=== PATIENT | female | born 1935 | race Caucasian/White ===

== ENCOUNTER 2018-07-12 10:24 | Emergency (ER) | payer MEDICARE, BC, OTHER ==
[2018-07-12] MEDS ORDERED: Ondansetron PF 4 MG/2 ML Vial ONE (10:48)
[2018-07-12 10:56] LABS: #Basophils 0.1 thou/uL (0.0-0.2); #Eosinphils 0.1 thou/uL (0.0-0.7); #Monocytes 0.6 thou/uL (0.11-0.59); #Neutrophils 10.3 thou/uL (1.40-6.50); %Basophils 0.4 % (0.0-1.0); %Eosinophils 0.9 % (0.0-10.0); %Lymphocytes 15.4 % (21.0-51.0); %Monocytes 4.6 % (0.0-10.0); %Neutrophils 78.7 % (42.0-75.0); Hemoglobin 13.4 g/dL (12.0-16.0); Mean Corpuscular HGB CONC 32.8 g/dL (32.0-36.0); Mean Corpuscular Hemoglobin 28.3 pg (27.0-31.0); Mean Corpuscular Volume 86.4 fL (78.0-98.0); Mean Platelet Volume 8.2 fL (7.4-10.4); Platelet Count 166 thou/uL (130-400); Red Blood Cell (RBC) Count 4.71 mill/uL (4.20-5.40); White Blood Cell (WBC) Count 13.1 thou/uL (4.8-10.8)
--- NOTE | 2018-07-12 11:02 | CT ---
CT BRAIN: Date: 07/12/18 PROVIDED CLINICAL HISTORY: Recent fall, vomiting. FINDINGS: Comparison made with study dated 06/07/12. The ventricular system is mildly prominent on the basis of central atrophy. There is no evidence for intracranial hemorrhage or mass effect. Mild chronic microvascular ischemic changes are seen involvin g the cerebral white matter. The extracranial soft tissues and osseous structures demonstrate an unre markable CT appearance. IMPRESSION: No evidence for intracranial hemorrhage or mass effect. POS: [facility]
[2018-07-12 11:10] LABS: Bilirubin Negative (Negative); Blood, Urine Small (Negative); Clarity TURBID (Clear); Glucose, Urine (Dipstick) Negative (Negative); Leukocyte Moderate (Negative); Nitrite Positive (Negative); Protein, Urine (Dipstick) 100 mg/dL (Neg-Trace); Specific Gravity, Urine 1.025 (1.002-1.036); pH, Urine 6.5 (5.0-9.0)
[2018-07-12 11:16] LABS: Bacteria/HPF 4+ HPF (None Seen); Pathc Cast-AUWi Flag 2.24 (0-2.49)
[2018-07-12 11:17] LABS: Yeast-AUWi Flag 51.5 (0-25.0)
[2018-07-12] MEDS ORDERED: ISOVUE-370 76%-LOCM 1 ML ONE (11:24)
[2018-07-12 11:26] LABS: Hyaline Casts/LPF NONE SEEN LPF (0-3 Hyaline); Yeast-All Forms None Seen HPF (None Seen)
[2018-07-12 11:35] LABS: ALT (SGPT) 13 U/L (8-55); AST (SGOT) 17 U/L (5-34); Albumin 4.1 g/dL (3.4-4.8); Alkaline Phosphatase 95 U/L (40-150); Anion Gap 16 mmol/L (10-20); BUN (Urea Nitrogen) 14 mg/dL (9.8-20.1); Bilirubin, Total 0.6 mg/dL (0.2-1.2); Calc. Creatinine Clearance 0 mL/min (70-130); Calcium 9.3 mg/dL (7.8-10.44); Carbon Dioxide 25 mmol/L (23-31); Chloride 106 mmol/L (98-107); Estimated GFR-MDRD 76; Globulin 3.1 g/dL (2.4-3.5); Glucose 130 mg/dL (83-110); Lipase 29 U/L (8-78); Potassium 3.5 mmol/L (3.5-5.1); Protein, Total 7.2 g/dL (6.0-8.3); Sodium 143 mmol/L (136-145)
--- NOTE | 2018-07-12 11:53 | CT ---
CT ABDOMEN WITH CONTRAST CT PELVIS WITH CONTRAST: DATE: 07/12/18 HISTORY: 82-year-old female with diffuse abdominal pain and nausea with vomiting. COMPARISON: 08/04/13. TECHNIQUE: IV injection of iodinated contrast media: 100 mL [id number]. Oral contrast media: Not administered. FINDINGS: There is a small sliding hiatal hernia. Again noted are the bilateral adrenal nodules, unchanged. The abdominal aorta, kidneys, pancreas, liver, and spleen demonstrate no gross abnormality. No perichole cystic fluid. Lung bases are grossly clear. No pneumoperitoneum or ascites. Unilateral left breast pr osthesis. No retroperitoneal lymphadenopathy or hematoma. Normal urinary bladder. Distention of the r ectum by a moderately large volume of stool. Absent uterus. Sigmoid colonic diverticula without diver ticulitis. No small bowel dilation. Normal appendix. IMPRESSION: 1. No acute findings. 2. Status post hysterectomy. 3. Bilateral adrenal adenomas. 4. Small sliding hiatal hernia. JNR POS: [facility]
[2018-07-12] MEDS ORDERED: cefTRIAXone\\ROCEPHIN 1 GM VIAL ONE (11:56)
== END 2018-07-12 14:37 | disposition home or self-care (01) ==
LOC: ERS 10:24
DX: N39.0 Urinary tract infection, site not specified (principal); R11.2 Nausea with vomiting, unspecified; I10 Essential (primary) hypertension; E78.5 Hyperlipidemia, unspecified; M19.90 Unspecified osteoarthritis, unspecified site; Z79.899 Other long term (current) drug therapy
CPT/HCPCS: 51701; 70450; 74177; 80053; 81003; 81015; 83605; 83690; 84484; 85025; 87077; 87086; 87186; 87804; 93005; 96361; 96365; 96375; A4353; J0696; J2405

== ENCOUNTER 2021-02-08 08:47 | Inpatient (IN) | payer MEDICARE, BC, MEDICAID ==
[2021-02-08] MEDS ORDERED: Diltiazem 125 MG/25 ML ONE (09:31)
[2021-02-08 10:49] LABS: Bacteria/HPF 4+ HPF (None Seen); Bilirubin Negative (Negative); Blood, Urine Trace (Negative); Clarity Turbid (Clear); Glucose, Urine (Dipstick) Normal (Negative); Ketone, Urine 10 mg/dL (Negative); Leukocyte 500 Leu/uL (Negative); Nitrite 1+ (Negative); Protein, Urine (Dipstick) 50 mg/dL (Neg-Trace); Specific Gravity, Urine 1.023 (1.002-1.036); Squamous Epithelial 0-3 HPF (0-3); Urobilinogen Normal mg/dL (Less than 2); WBC/HPF Greater than 50 HPF (0-3); pH, Urine 5.5 (5.0-9.0)
[2021-02-08] MEDS ORDERED: cefTRIAXone\\ROCEPHIN 1 GM VIAL ONE (11:02)
[2021-02-08] MEDS ORDERED: Diltiazem 125 MG in Sodium Chloride 0.9% 100 ML IVPB SCH ×4 (11:45→21:00)
[2021-02-08 12:19] LABS: Anion Gap 14 mmol/L (10-20); BUN (Urea Nitrogen) 18 mg/dL (9.8-20.1); Calc. Creatinine Clearance 0 mL/min (70-130); Calcium 9.5 mg/dL (7.8-10.44); Carbon Dioxide 24 mmol/L (23-31); Chloride 109 mmol/L (98-107); Glucose 105 mg/dL (83-110); Magnesium 1.9 mg/dL (1.6-2.6); Phosphorus 3.4 mg/dL (2.3-4.7); Potassium 3.7 mmol/L (3.5-5.1); Sodium 143 mmol/L (136-145)
[2021-02-08 12:48] LABS: #Basophils 0.1 thou/uL (0.0-0.2); #Eosinphils 0.1 thou/uL (0.0-0.7); #Lymphocytes 2.7 thou/uL (1.20-3.40); #Monocytes 0.7 thou/uL (0.11-0.59); %Basophils 0.5 % (0.0-1.0); %Eosinophils 1.3 % (0.0-10.0); %Lymphocytes 25.9 % (21.0-51.0); %Monocytes 6.3 % (0.0-10.0); Hemoglobin 13.9 g/dL (12.0-16.0); Mean Corpuscular HGB CONC 33.1 g/dL (32.0-36.0); Mean Corpuscular Hemoglobin 28.6 pg (27.0-31.0); Mean Corpuscular Volume 86.4 fL (78.0-98.0); Mean Platelet Volume 8.2 fL (7.4-10.4); Platelet Count 218 thou/uL (130-400); RBC Distribution Width 13.8 % (11.5-14.5); Red Blood Cell (RBC) Count 4.87 mill/uL (4.20-5.40); White Blood Cell (WBC) Count 10.6 thou/uL (4.8-10.8)
[2021-02-08] MEDS ORDERED: Magnesium Sulfate 2 GM in Sodium Chloride 0.9% 100 ML IVPB SCH (13:15)
[2021-02-08] MEDS ORDERED: Magnesium 2 GM/50 ML 2 GM in Premix Bag 1 BAG IVPB SCH (13:15)
[2021-02-08 13:42] LABS: SARS-CoV-2 NAA Rapid Test Not Detected (NotDetected)
[2021-02-08] MEDS ORDERED: Aspirin Chewable 81 MG TAB ONE (13:50)
[2021-02-08] MEDS ORDERED: Magnesium 2 GM/50 ML BAG (IN WATER) ONE (14:13)
[2021-02-08] MEDS ORDERED: Calcium Carbonate 500 MG ChewTAB PO PRN (14:22)
[2021-02-08] MEDS ORDERED: Acetaminophen 325 MG TAB PO PRN (14:22)
[2021-02-08] MEDS ORDERED: Senokot S 8.6-50 MG TAB PO PRN (14:22)
[2021-02-08] MEDS ORDERED: Enoxaparin Sodium 80 MG/0.8 ML SYRINGE ONE (14:51)
[2021-02-08 15:11] LABS: Troponin I 0.021 ng/mL (< 0.028)
[2021-02-08 18:37] VITALS: BMI 23.6
[2021-02-08] MEDS ORDERED: Electrolyte Replacement Protocol 1 EACH FS SCH (20:45)
[2021-02-08] MEDS ORDERED: Electrolyte Replacement Protocol FS PRN (21:00)
[2021-02-08] MEDS: Metoprolol Tartrate 25 MG TAB PO SCH (21:26)
[2021-02-08] MEDS: Polyethylene Glycol 3350 17 GM Packet PO SCH (21:26)
[2021-02-08] MEDS: Senokot S 8.6-50 MG TAB PO SCH (21:26)
[2021-02-08] MEDS: Melatonin 3 MG TAB PO SCH (21:26)
[2021-02-08] MEDS: Donepezil HCl 5 MG TAB PO SCH (21:26)
[2021-02-08] MEDS: Rosuvastatin 5 MG TAB PO SCH (21:26)
[2021-02-09 04:37] LABS: #Eosinphils 0.3 thou/uL (0.0-0.7); #Lymphocytes 2.9 thou/uL (1.20-3.40); #Monocytes 0.8 thou/uL (0.11-0.59); #Neutrophils 5.7 thou/uL (1.40-6.50); %Basophils 0.4 % (0.0-1.0); %Lymphocytes 30.1 % (21.0-51.0); %Monocytes 7.9 % (0.0-10.0); %Neutrophils 58.7 % (42.0-75.0); Hemoglobin 12.6 g/dL (12.0-16.0); Mean Corpuscular HGB CONC 33.6 g/dL (32.0-36.0); Mean Corpuscular Hemoglobin 28.9 pg (27.0-31.0); Mean Platelet Volume 8.8 fL (7.4-10.4); Platelet Count 227 thou/uL (130-400); RBC Distribution Width 13.8 % (11.5-14.5); Red Blood Cell (RBC) Count 4.36 mill/uL (4.20-5.40); White Blood Cell (WBC) Count 9.7 thou/uL (4.8-10.8)
[2021-02-09 05:03] LABS: Phosphorus 4.3 mg/dL (2.3-4.7)
[2021-02-09 05:08] LABS: ALT (SGPT) 12 U/L (8-55); AST (SGOT) 15 U/L (5-34); Albumin 3.4 g/dL (3.4-4.8); Alkaline Phosphatase 94 U/L (40-110); Anion Gap 11 mmol/L (10-20); BUN (Urea Nitrogen) 24 mg/dL (9.8-20.1); Bilirubin, Total 0.4 mg/dL (0.2-1.2); Calc. Creatinine Clearance 38 mL/min (70-130); Calcium 9.2 mg/dL (7.8-10.44); Carbon Dioxide 27 mmol/L (23-31); Chloride 107 mmol/L (98-107); Globulin 3.1 g/dL (2.4-3.5); Glucose 113 mg/dL (83-110); Magnesium 2.5 mg/dL (1.6-2.6); Potassium 3.6 mmol/L (3.5-5.1); Protein, Total 6.5 g/dL (5.8-8.1); Sodium 141 mmol/L (136-145)
[2021-02-09] MEDS ORDERED: Aspirin 325 mg Enteric Coated Tablet PO SCH (09:00)
[2021-02-09] MEDS: Senokot S 8.6-50 MG TAB PO SCH ×2 (09:41→20:00)
[2021-02-09] MEDS: Metoprolol Tartrate 25 MG TAB PO SCH ×2 (09:41→20:00)
[2021-02-09] MEDS: Calcium Carbonate 600 MG TAB PO SCH (09:41)
[2021-02-09] MEDS: Citalopram 10 MG TAB PO SCH (09:42)
[2021-02-09] MEDS: Multivit, Therapeutic 1 TAB PO SCH (09:42)
[2021-02-09] MEDS: cefTRIAXone\\ROCEPHIN 1 GM in Sodium Chloride 0.9% 100 ML IVPB SCH (11:11)
[2021-02-09] MEDS: Rosuvastatin 5 MG TAB PO SCH (20:00)
[2021-02-09] MEDS: Donepezil HCl 5 MG TAB PO SCH (20:00)
[2021-02-09] MEDS: Melatonin 3 MG TAB PO SCH (20:00)
[2021-02-09] MEDS: Polyethylene Glycol 3350 17 GM Packet PO SCH (20:05)
[2021-02-10 05:11] LABS: #Eosinphils 0.3 thou/uL (0.0-0.7); #Lymphocytes 2.6 thou/uL (1.20-3.40); #Monocytes 0.6 thou/uL (0.11-0.59); #Neutrophils 4.3 thou/uL (1.40-6.50); %Basophils 0.3 % (0.0-1.0); %Eosinophils 3.5 % (0.0-10.0); %Lymphocytes 33.4 % (21.0-51.0); %Monocytes 7.3 % (0.0-10.0); %Neutrophils 55.5 % (42.0-75.0); Hemoglobin 11.6 g/dL (12.0-16.0); Mean Corpuscular HGB CONC 32.7 g/dL (32.0-36.0); Mean Corpuscular Hemoglobin 28.2 pg (27.0-31.0); Mean Corpuscular Volume 86.2 fL (78.0-98.0); Mean Platelet Volume 8.5 fL (7.4-10.4); Platelet Count 198 thou/uL (130-400); RBC Distribution Width 13.7 % (11.5-14.5); Red Blood Cell (RBC) Count 4.12 mill/uL (4.20-5.40); White Blood Cell (WBC) Count 7.8 thou/uL (4.8-10.8)
[2021-02-10 05:34] LABS: Anion Gap 11 mmol/L (10-20); BUN (Urea Nitrogen) 19 mg/dL (9.8-20.1); Calc. Creatinine Clearance 47 mL/min (70-130); Calcium 8.8 mg/dL (7.8-10.44); Carbon Dioxide 27 mmol/L (23-31); Chloride 108 mmol/L (98-107); Glucose 99 mg/dL (83-110); Potassium 3.5 mmol/L (3.5-5.1); Sodium 142 mmol/L (136-145)
[2021-02-10] MEDS ORDERED: Magnesium 2 GM/50 ML 2 GM in Premix Bag 1 BAG IVPB SCH (06:30)
[2021-02-10] MEDS ORDERED: Potassium Chloride 20 MEQ TAB PO SCH (06:45)
[2021-02-10 10:17] LABS: Hemoglobin 12.6 g/dL (12.0-16.0); Platelet Count 202 thou/uL (130-400)
[2021-02-10] MEDS: Apixaban 2.5 MG TAB PO SCH ×2 (10:20→20:17)
[2021-02-10] MEDS: Citalopram 10 MG TAB PO SCH (10:21)
[2021-02-10] MEDS: Senokot S 8.6-50 MG TAB PO SCH ×2 (10:22→20:16)
[2021-02-10] MEDS: Multivit, Therapeutic 1 TAB PO SCH (10:22)
[2021-02-10] MEDS: Calcium Carbonate 600 MG TAB PO SCH (10:23)
[2021-02-10] MEDS: cefTRIAXone\\ROCEPHIN 1 GM in Sodium Chloride 0.9% 100 ML IVPB SCH (10:49)
[2021-02-10] MEDS ORDERED: Sulfameth/Trimethoprim DS 800-160mg TAB PO SCH (12:00)
[2021-02-10] MEDS: Metoprolol Tartrate 25 MG TAB PO SCH ×2 (13:25→20:17)
[2021-02-10] MEDS: Donepezil HCl 5 MG TAB PO SCH (20:16)
[2021-02-10] MEDS: Sulfameth/Trimethoprim DS 800-160mg TAB PO SCH (20:17)
[2021-02-10] MEDS: Rosuvastatin 5 MG TAB PO SCH (20:17)
[2021-02-10] MEDS: Melatonin 3 MG TAB PO SCH (20:17)
[2021-02-10] MEDS: Amlodipine 5 MG TAB PO SCH (20:18)
[2021-02-10] MEDS: Polyethylene Glycol 3350 17 GM Packet PO SCH (20:57)
[2021-02-11 04:42] LABS: #Eosinphils 0.2 thou/uL (0.0-0.7); #Lymphocytes 2.8 thou/uL (1.20-3.40); #Monocytes 0.5 thou/uL (0.11-0.59); #Neutrophils 5.5 thou/uL (1.40-6.50); %Basophils 0.5 % (0.0-1.0); %Eosinophils 2.7 % (0.0-10.0); %Lymphocytes 30.9 % (21.0-51.0); %Monocytes 5.7 % (0.0-10.0); %Neutrophils 60.2 % (42.0-75.0); Hemoglobin 11.7 g/dL (12.0-16.0); Mean Corpuscular HGB CONC 33.8 g/dL (32.0-36.0); Mean Corpuscular Volume 85.9 fL (78.0-98.0); Mean Platelet Volume 8.1 fL (7.4-10.4); Platelet Count 204 thou/uL (130-400); RBC Distribution Width 13.5 % (11.5-14.5); Red Blood Cell (RBC) Count 4.04 mill/uL (4.20-5.40); White Blood Cell (WBC) Count 9.1 thou/uL (4.8-10.8)
[2021-02-11 05:02] LABS: Anion Gap 10 mmol/L (10-20); BUN (Urea Nitrogen) 13 mg/dL (9.8-20.1); Calc. Creatinine Clearance 50 mL/min (70-130); Calcium 8.9 mg/dL (7.8-10.44); Carbon Dioxide 27 mmol/L (23-31); Chloride 108 mmol/L (98-107); Glucose 97 mg/dL (83-110); Potassium 3.7 mmol/L (3.5-5.1); Sodium 141 mmol/L (136-145)
[2021-02-11 07:49] VITALS: TEMP 98
[2021-02-11] MEDS: Multivit, Therapeutic 1 TAB PO SCH (08:56)
[2021-02-11] MEDS: Amlodipine 5 MG TAB PO SCH (08:56)
[2021-02-11] MEDS: Apixaban 2.5 MG TAB PO SCH (08:56)
[2021-02-11] MEDS: Metoprolol Tartrate 25 MG TAB PO SCH (08:56)
[2021-02-11] MEDS: Calcium Carbonate 600 MG TAB PO SCH (08:57)
[2021-02-11] MEDS: Sulfameth/Trimethoprim DS 800-160mg TAB PO SCH (08:57)
[2021-02-11] MEDS: Senokot S 8.6-50 MG TAB PO SCH (08:57)
[2021-02-11] MEDS ORDERED: Citalopram 10 MG TAB PO SCH (09:00)
[2021-02-11] MEDS ORDERED: DULoxetine 30 MG CAP PO SCH (09:00)
[2021-02-11 16:24] VITALS: BP 148/72
== END 2021-02-11 20:52 | DRG 308 ==
LOC: ERS 08:47 → ERHOLD 12:02 → 2NO 17:36
PROVIDERS: ADMIT Internal Medicine; ATTEND Internal Medicine
DX: I48.0 Paroxysmal atrial fibrillation (principal); G93.41 Metabolic encephalopathy; N39.0 Urinary tract infection, site not specified; Z16.39 Resistance to other specified antimicrobial drug; I24.8 Other forms of acute ischemic heart disease; Z66 Do not resuscitate; Z20.822 Contact with and (suspected) exposure to COVID-19; F41.9 Anxiety disorder, unspecified; I10 Essential (primary) hypertension; E78.5 Hyperlipidemia, unspecified; F03.90 Unspecified dementia, unspecified severity, without behavioral disturbance, psychotic disturbance, mood disturbance, and anxiety; B96.20 Unspecified Escherichia coli [E. coli] as the cause of diseases classified elsewhere; E87.6 Hypokalemia; E83.42 Hypomagnesemia; F32.9 Major depressive disorder, single episode, unspecified; M19.90 Unspecified osteoarthritis, unspecified site; G47.00 Insomnia, unspecified; Z79.899 Other long term (current) drug therapy; Z79.51 Long term (current) use of inhaled steroids; Z90.710 Acquired absence of both cervix and uterus
CPT/HCPCS: 0240U; 36415; 51701; 71045; 80048; 80053; 81003; 81015; 82553; 83735; 84100; 84484; 85025; 87077; 87086; 87186; 93005; 93306; 96365; 96366; 96368; 96372; J0696; J1650; J3475; J3490